=== PATIENT | female | born 1950 | race Caucasian/White ===

== ENCOUNTER 2023-06-20 12:15 | Outpatient (CLI) | payer MEDICARE, SELFPAY ==
--- NOTE | 2023-06-20 12:49 | XR_ITS ---
WS: [id number] DEXA (DUAL ENERGY X-RAY ABSORPTIOMETRY) Bone mineral density was performed using a [employer] machine. HISTORY: OSTEOPOROSIS COMPARISON: None available. Left forearm BMD: 0.537 g/cm2. T score: -3.9 Z score: -1.8 Total hip BMD: Left: 0.795 g/cm2. T score: -1.7 Z score: 0.0 Right: 0.689 g/cm2. T score: -2.5 Z score: -0.9 10 year probability of a major osteoporotic fracture is 35.4%. XR/XR DEXA axial skeleton* 37060 IMPRESSION: OSTEOPOROSIS based upon the WHO classification for females.
== END 2023-06-20 12:16 | disposition home or self-care (01) ==
PROVIDERS: PCP Family Medicine; Visit Provider Family Medicine
DX: M81.0 Age-related osteoporosis without current pathological fracture (principal)
CPT/HCPCS: 77080

== ENCOUNTER → 2024-01-12 09:58 | Outpatient (BNVA) | payer MEDICARE, SELFPAY | PROVIDERS: PCP Family Medicine; Referring Provider Family Medicine; Visit Provider Surgery | DX: Z12.11 Encounter for screening for malignant neoplasm of colon (principal); K21.9 Gastro-esophageal reflux disease without esophagitis; Z86.010 Personal history of colon polyps; Z80.0 Family history of malignant neoplasm of digestive organs; Z79.899 Other long term (current) drug therapy | CPT/HCPCS: 99204 ==

== ENCOUNTER → 2024-04-14 10:49 | Outpatient (BNVA) | payer MEDICARE, SELFPAY | PROVIDERS: PCP Family Medicine; Referring Provider Family Medicine; Visit Provider Anesthesiology Pain Medicine | DX: M54.2 Cervicalgia (principal) | CPT/HCPCS: 99204 ==

== ENCOUNTER → 2024-11-29 12:55 | Outpatient (BNVA) | payer MEDICARE, SELFPAY | PROVIDERS: PCP Family Medicine; Visit Provider Surgery | DX: R10.13 Epigastric pain (principal); R14.0 Abdominal distension (gaseous); R11.2 Nausea with vomiting, unspecified; K21.9 Gastro-esophageal reflux disease without esophagitis; Z80.0 Family history of malignant neoplasm of digestive organs; Z12.11 Encounter for screening for malignant neoplasm of colon | CPT/HCPCS: 99214 ==

== ENCOUNTER 2024-12-15 09:30 | Day surgery (SDC) | payer MEDICARE, SELFPAY ==
[2024-12-15 09:37] VITALS: BMI 21.9
[2024-12-15 09:43] VITALS: TEMP 36.3
[2024-12-15] MEDS: sodium chloride 0.9% 500 ML 15 ML IV (09:47)
--- NOTE | 2024-12-15 10:30 | P.ANESASSM_ITS ---
Pre-Anesthetic Assessment Height/Weight: Height 1.57 m Weight 54.431 kg Temp O2 Del Method 97.3 F L Room Air 12/15/24 09:43 12/15/24 09:43 Preop Diagnosis: screening, nausea, vomiting, gerd Operation Date: 12/15/24 10:30 Proposed Procedures p EGD 64663, 22206, G0105, Z12.11, R11.2, R14.0, R10.13, Z80.0, K21.9(Not Applicable) - DO mahesh Garcia Colonoscopy(Not Applicable) - Surinder Cardenas DO Familial anesthetic complications: none Was Beta Rl taken within 24 hours: N/A Was Clonidine taken within 24 hours: N/A Last intake: Intake Last Liquid Date 12/14/24 Last Liquid Time 22:00 Last Solid Date 12/13/24 Last Solid Time 18:00 Social Tobacco and No alcohol Exam alert, oriented x 3 and regular rate & rhythm Airway Mallampati: Class I Dentition: false History/ROS No significant history except as noted Pulmonary Chronic Obstructive Pulmonary Disease (uses inhaler daily, feels like her breathing is at baseline) CV/HEM Hypertension None reported Hepatic None reported GI Gastroesophageal Reflux Disease Metabolic Thyroid Disease Musc/skel Lower Back Pain Neuropsych None reported Anesthetic Plan ASA status: 3 Anesthesia: Anesthesia Evaluation and MAC Risk of > 500 ml blood loss (7ml/kg in children): No Medications/Allergies Home Medications Medication Instructions Recorded Confirmed Last Taken Type alendronate 70 mg tablet 70 mg PO .WEEKLY 01/12/24 12/13/24 12/08/24 History amlodipine 10 mg tablet 10 mg PO DAILY 01/12/24 12/13/24 12/14/24 History buspirone 10 mg tablet 10 mg PO BID 01/12/24 12/13/24 12/14/24 History gabapentin 100 mg capsule 100 mg PO TID 01/12/24 12/13/24 12/14/24 History hydrochlorothiazide 25 mg tablet 25 mg PO DAILY 01/12/24 12/13/24 12/14/24 History levothyroxine 112 mcg tablet 112 mcg PO DAILY 01/12/24 12/13/24 12/14/24 History (Euthyrox) potassium chloride 20 mEq 20 meq PO BID 01/12/24 12/13/24 12/14/24 History tablet,extended release(part/cryst) (Klor-Con M) ropinirole 0.5 mg tablet 0.5 mg PO DAILY 01/12/24 12/13/24 12/14/24 History umeclidinium 62.5 mcg-vilanterol 2 inh inhalation DAILY 01/12/24 12/13/24 12/15/24 08:00 History 25 mcg/actuation powdr for inhalation (Anoro Ellipta) docusate sodium 100 mg capsule 100 mg PO DAILY #4 caps 01/13/24 12/13/24 12/14/24 Rx magnesium citrate 300 ml PO DAILY PRN constipation 01/13/24 11/29/24 12/14/24 Rx #296 mL pantoprazole 40 mg tablet,delayed 40 mg PO BID 6 weeks #84 tabs 01/13/24 12/13/24 12/14/24 Rx release (Protonix) amitriptyline 25 mg tablet 25 mg PO DAILY 12/13/24 12/13/24 12/14/24 History aspirin 81 mg tablet 81 mg PO DAILY 12/13/24 12/13/24 12/13/24 History oxycodone 5 mg tablet 5 mg PO DAILY 12/13/24 12/13/24 12/14/24 History Allergies Allergy/AdvReac Type Severity Reaction Status Date / Time Otdaxwq-GHE-AmE Reductase Allergy Unknown Verified 12/13/24 10:04 Inhibitor Current Medications Generic Name Dose Route Start Last Admin Trade Name Freq PRN Reason Stop Dose Admin Sodium Chloride 500 mls @ 15 mls/hr 12/15/24 09:34 12/15/24 09:47 Sodium Chloride 0.9% IV 12/16/24 09:33 15 mls/hr .Q24H PRN Administration COLONOSCOPY FLUIDS PFSH Anesthesia Medical History (Updated 11/29/24 @ 13:52 by Surinder Cardenas DO) C7 cervical fracture Surgical History (Updated 11/29/24 @ 13:51 by Surinder Cardenas DO) H/O colonoscopy with polypectomy 2016 2018 [facility] History of hysterectomy including cervix Hx laparoscopic cholecystectomy Hx of tonsillectomy Family History Father Colon cancer Daughter Colon cancer Social History Smoking and tobacco/nicotine status: never used tobacco/nicotine Alcohol intake: never Substance/Drug Use: never Data Anesthesia Cardiac Studies: No Data to Display
--- NOTE | 2024-12-15 10:34 | W.PM.OPSUD ---
Surgery/Procedure H&P Update DATE OF PROCEDURE: December 15, 2024 DATE H&P PERFORMED: 11/29/24 H&P UPDATE INFORMATION: I have reviewed H&P completed within last 30 days, I have examined patient prior to procedure and No changes to prior documentation PLANNED PROCEDURE: Operation Date: 12/15/24 10:30 Proposed Procedures p EGD 92872, 53753, G0105, Z12.11, R11.2, R14.0, R10.13, Z80.0, K21.9(Not Applicable) - DO mahesh Garcia Colonoscopy(Not Applicable) - Surinder Cardenas DO
[2024-12-15] MEDS: EPINEPHrine 1 mg/mL INJ XX (10:45)
[2024-12-15 11:20] VITALS: BP 92/58; PULSE 65; RESP 14; TEMP 36.1; O2SAT 97
--- NOTE | 2024-12-15 11:50 | ANE.PACU2 ---
Inpatient post-anesthesia follow up: Airway intact: Yes Vital signs: Temperature 97 F Pulse Rate 66 Respiratory Rate 18 Blood Pressure 100/71 Pulse Oximetry 95 Oxygen Delivery Me thod Room Air Oxygen Flow Rate Fraction of Inspir ed Oxygen Hydration adequate: Yes Nausea and vomiting: No Pain level: 1 Mental status: Baseline
[2024-12-15 11:59] VITALS: BP 100/71; PULSE 66; RESP 18; O2SAT 95
== END 2024-12-15 11:59 | disposition home or self-care (01) ==
PROVIDERS: PCP Family Medicine; Visit Provider Surgery
PROC: 0DJ08ZZ Inspection of Upper Intestinal Tract, Via Natural or Artificial Opening Endoscopic (ICD-10-PCS; principal; 2024-12-15 10:30)
PROC: 0DJD8ZZ Inspection of Lower Intestinal Tract, Via Natural or Artificial Opening Endoscopic (ICD-10-PCS; CPT 45378; 2024-12-15 10:30)
DX: Z12.11 Encounter for screening for malignant neoplasm of colon (principal); K44.9 Diaphragmatic hernia without obstruction or gangrene; K21.9 Gastro-esophageal reflux disease without esophagitis; K64.8 Other hemorrhoids; K29.50 Unspecified chronic gastritis without bleeding; Z80.0 Family history of malignant neoplasm of digestive organs; Z86.0100 Personal history of colon polyps, unspecified; Z79.899 Other long term (current) drug therapy
CPT/HCPCS: 43239; 45378; 88305; 88342; J0171; J2371; J2704; J7040

== ENCOUNTER → 2024-12-30 08:38 | Outpatient (BNVA) | payer MEDICARE, SELFPAY | PROVIDERS: PCP Family Medicine; Visit Provider Surgery | DX: Z09 Encounter for follow-up examination after completed treatment for conditions other than malignant neoplasm (principal); R10.13 Epigastric pain; R14.0 Abdominal distension (gaseous); R11.2 Nausea with vomiting, unspecified; K21.9 Gastro-esophageal reflux disease without esophagitis | CPT/HCPCS: 99214 ==

== ENCOUNTER → 2025-01-13 08:46 | Outpatient (BNVA) | payer MEDICARE, SELFPAY | PROVIDERS: PCP Family Medicine; Visit Provider Surgery | DX: Z09 Encounter for follow-up examination after completed treatment for conditions other than malignant neoplasm (principal); R14.0 Abdominal distension (gaseous); R11.2 Nausea with vomiting, unspecified | CPT/HCPCS: 99214 ==

== ENCOUNTER → 2025-02-03 14:45 | Outpatient (BNVA) | payer MEDICARE, SELFPAY | PROVIDERS: PCP Family Medicine; Visit Provider Student in an Organized Health Care Education/Training Program | DX: R14.0 Abdominal distension (gaseous) (principal) | CPT/HCPCS: 99213 ==